=== PATIENT | female | born 1985 | race Caucasian/White ===

== ENCOUNTER 2024-07-12 14:11 | Emergency (ER) | payer MEDICAID ==
[~2024-07-12] VITALS: Ht 170.2 cm; Wt 90.0 kg
[2024-07-12] MEDS ORDERED: [UNRECOGNIZED DRUG - CODE] PO (14:25)
[2024-07-12] MEDS ORDERED: ONDA-104 PO (14:25)
[2024-07-12] MEDS: SODIUM CHLORIDE 0.9% 1,000 ML IV ONE (16:19)
[2024-07-12 16:33] LABS: HEMATOCRIT 41.1 % (36-46); HEMOGLOBIN 13.8 g/dL (12.0-16.0); LYMPHOCYTES # (AUTO) 1.8 K/uL (1.0-4.8); MONOCYTES # (AUTO) 0.4 K/uL (0.1-1.0); RED CELL DISTRIBUTION WIDTH 13.3 % (11.5-14.5)
[2024-07-12 16:37] LABS: BASOPHILS % (AUTO) 0.5 % (0.0-2.0); EOSINOPHILS % (AUTO) 2.7 % (1.0-6.0); LYMPHOCYTES % (AUTO) 23.5 % (22.0-44.0); MEAN CORPUSCULAR HGB CONC 33.6 G/dL (31.0-37.0); MEAN CORPUSCULAR VOLUME 89 fL (80-100); MONOCYTES % (AUTO) 5.1 % (2.0-9.0); NEUTROPHILS # (AUTO) 5.2 K/uL (1.8-7.7); NEUTROPHILS % (AUTO) 68.2 % (40.0-70.0); PLATELET COUNT (AUTO) 342 K/uL (150-450); RED BLOOD CELL COUNT(AUTO) 4.61 MIL/uL (4.00-5.20); WHITE BLOOD COUNT (AUTO) 7.6 K/uL (4.5-11.0)
[2024-07-12 16:43] LABS: ANION GAP 6 mmol/L (8-16); CALCIUM, TOTAL 8.6 mg/dL (8.8-10.5); CARBON DIOXIDE 26 mmol/L (22-29); CHLORIDE 101 mmol/L (98-107); CREATININE 0.61 mg/dL (0.60-1.30); GLOMERULAR FILTR. RATE CALC > 60 mL/min (>60); GLUCOSE,RANDOM 80 mg/dL (70-110); POTASSIUM 3.6 mmol/L (3.5-5.1); SODIUM SERUM 133 mmol/L (136-145); UREA NITROGEN, BLOOD 8 mg/dL (7-18)
[2024-07-12] MEDS: KETOROLAC TROMETHAMINE 30 MG/ML VIAL IVP ONE (20:11)
[2024-07-12 20:28] VITALS: BP 129/72; PULSE 68; RESP 18; TEMP 97.3; O2SAT 99
== END 2024-07-12 20:41 | disposition home or self-care (01) ==
LOC: EMS 14:17
DX: O03.9 Complete or unspecified spontaneous abortion without complication (principal); O26.891 Other specified pregnancy related conditions, first trimester; Z3A.01 Less than 8 weeks gestation of pregnancy
CPT/HCPCS: 99285; 96374; 76801; 96361; 80048; 84703; 85025; 36415; J1885; J7030

== ENCOUNTER 2024-07-20 18:17 | Emergency (ER) | payer MEDICAID ==
[~2024-07-20] VITALS: Ht 165.1 cm; Wt 86.4 kg
[~2024-07-20 18:17] MED LIST: ONDA-104 PO; [UNRECOGNIZED DRUG - CODE] PO
[2024-07-20 19:40] LABS: BASOPHILS % (AUTO) 0.3 % (0.0-2.0); EOSINOPHILS % (AUTO) 1.1 % (1.0-6.0); HEMATOCRIT 28.2 % (36-46); HEMOGLOBIN 9.4 g/dL (12.0-16.0); LYMPHOCYTES # (AUTO) 2.2 K/uL (1.0-4.8); LYMPHOCYTES % (AUTO) 15.3 % (22.0-44.0); MEAN CORPUSCULAR HEMOGLOBIN 29.6 pg (26.0-34.0); MEAN CORPUSCULAR HGB CONC 33.4 G/dL (31.0-37.0); MEAN CORPUSCULAR VOLUME 89 fL (80-100); MONOCYTES # (AUTO) 0.7 K/uL (0.1-1.0); MONOCYTES % (AUTO) 4.7 % (2.0-9.0); NEUTROPHILS # (AUTO) 11.1 K/uL (1.8-7.7); NEUTROPHILS % (AUTO) 78.6 % (40.0-70.0); PLATELET COUNT (AUTO) 535 K/uL (150-450); RED BLOOD CELL COUNT(AUTO) 3.18 MIL/uL (4.00-5.20); RED CELL DISTRIBUTION WIDTH 13.4 % (11.5-14.5); WHITE BLOOD COUNT (AUTO) 14.1 K/uL (4.5-11.0)
[2024-07-20 19:55] VITALS: BP 111/68; PULSE 81; RESP 16; TEMP 98.1
[2024-07-20 19:58] LABS: TROPONIN I-HIGH SENSITIVITY Less Than 4 ng/L (<51)
[2024-07-20 19:59] LABS: PROTHROMBIN TIME 10.5 SEC (9.4-11.6)
[2024-07-20 20:02] LABS: ANION GAP 16 mmol/L (8-16); CALCIUM, TOTAL 8.5 mg/dL (8.8-10.5); CARBON DIOXIDE 21 mmol/L (22-29); CHLORIDE 101 mmol/L (98-107); CREATININE 0.72 mg/dL (0.60-1.30); GLOMERULAR FILTR. RATE CALC > 60 mL/min (>60); GLUCOSE,RANDOM 150 mg/dL (70-110); POTASSIUM 3.2 mmol/L (3.5-5.1); SODIUM SERUM 137 mmol/L (136-145); UREA NITROGEN, BLOOD 12 mg/dL (7-18)
[2024-07-20 20:07] LABS: ALANINE AMINOTRANSFERASE 25 U/L (12-78); ALBUMIN 3.5 g/dL (3.4-5.0); ALKALINE PHOSPHATASE 58 U/L (46-116); ASPARTATE AMINOTRANSFERASE 12 U/L (15-37); BILIRUBIN,TOTAL 0.1 mg/dL (0.1-1.0); TOTAL PROTEIN, SERUM 6.8 g/dL (6.4-8.2)
[2024-07-20 20:10] VITALS: BP 118/70; PULSE 80; RESP 16; TEMP 98.2
[2024-07-20 20:17] LABS: PHOSPHORUS 3.3 mg/dL (2.5-4.9)
[2024-07-20 20:25] VITALS: BP 115/67; PULSE 80; RESP 16; TEMP 98.5
[2024-07-20 20:36] LABS: HCG,QUANTITATIVE 11903 mIU/mL (0-6)
[2024-07-20 20:40] VITALS: BP 109/63; PULSE 76; RESP 16; TEMP 98.7
[2024-07-20] MEDS: POTASSIUM CHLORIDE 20 MEQ ER TABLET PO ONE (21:19)
[2024-07-20 21:40] VITALS: BP 135/94; PULSE 74; RESP 16; TEMP 98.5
[2024-07-20] MEDS: ACETAMINOPHEN 500 MG TABLET PO ONE (21:52)
[2024-07-20 23:25] VITALS: BP 131/82; PULSE 81; RESP 18; O2SAT 100
[2024-07-20 23:43] LABS: BASOPHILS % (AUTO) 0.3 % (0.0-2.0); EOSINOPHILS % (AUTO) 0.5 % (1.0-6.0); HEMATOCRIT 31.7 % (36-46); HEMOGLOBIN 10.5 g/dL (12.0-16.0); LYMPHOCYTES # (AUTO) 1.5 K/uL (1.0-4.8); LYMPHOCYTES % (AUTO) 11.6 % (22.0-44.0); MEAN CORPUSCULAR HEMOGLOBIN 28.9 pg (26.0-34.0); MEAN CORPUSCULAR HGB CONC 33.1 G/dL (31.0-37.0); MEAN CORPUSCULAR VOLUME 87 fL (80-100); MONOCYTES # (AUTO) 0.5 K/uL (0.1-1.0); MONOCYTES % (AUTO) 3.8 % (2.0-9.0); NEUTROPHILS % (AUTO) 83.8 % (40.0-70.0); PLATELET COUNT (AUTO) 417 K/uL (150-450); RED BLOOD CELL COUNT(AUTO) 3.63 MIL/uL (4.00-5.20); RED CELL DISTRIBUTION WIDTH 14.4 % (11.5-14.5); WHITE BLOOD COUNT (AUTO) 13.1 K/uL (4.5-11.0)
[2024-07-20 23:54] LABS: ANION GAP 12 mmol/L (8-16); CALCIUM, TOTAL 8.4 mg/dL (8.8-10.5); CARBON DIOXIDE 23 mmol/L (22-29); CHLORIDE 103 mmol/L (98-107); CREATININE 0.58 mg/dL (0.60-1.30); GLOMERULAR FILTR. RATE CALC > 60 mL/min (>60); GLUCOSE,RANDOM 116 mg/dL (70-110); POTASSIUM 3.9 mmol/L (3.5-5.1); SODIUM SERUM 138 mmol/L (136-145); UREA NITROGEN, BLOOD 10 mg/dL (7-18)
== END 2024-07-21 01:20 | disposition home or self-care (01) ==
LOC: EMS 18:17
DX: O73.1 Retained portions of placenta and membranes, without hemorrhage (principal); N93.9 Abnormal uterine and vaginal bleeding, unspecified; R55 Syncope and collapse; R61 Generalized hyperhidrosis; R56.9 Unspecified convulsions; Z3A.00 Weeks of gestation of pregnancy not specified
CPT/HCPCS: 99285; 36430; 76856; 80053; 83735; 83880; 84100; 84484; 84702; 85025; 85610; 85730; 86850; 86900; 86901; 86920; 36415; 93005; 80048; P9016